=== PATIENT | male | born 1970 | race Two or more races ===

== ENCOUNTER 2020-01-08 11:35 | Inpatient (IN) | payer MEDICAID, OTHER ==
[~2020-01-08] VITALS: Ht 167.6 cm; Wt 81.2 kg
[2020-01-08] MEDS ORDERED: ASPIRIN 81MG TABLET PO ONE (14:15)
[2020-01-08 14:30] LABS: BASOPHILS % 0.4 % (0.0-2.0); EOSINOPHILS % 0.2 % (0.0-5.0); HEMATOCRIT. 47.7 % (42.0-52.0); HEMOGLOBIN. 16.6 g/dL (14.0-18.0); LYMPHOCYTES % 12.9 % (20.0-50.0); MEAN CORPUSCULAR HEMOGLOBIN 32.7 pg (28.0-32.0); MEAN CORPUSCULAR VOLUME 93.8 fL (80.0-94.0); MONOCYTES % 12.3 % (2.0-8.0); NEUTROPHILS % 74.2 % (40.0-76.0); PLATELET 195 x1000/uL (130-400); RED BLOOD CELL COUNT 5.08 mill/uL (4.7-6.1); RED CELL DISTRIBUTION WIDTH 13.3 % (11.6-14.6)
[2020-01-08 14:47] LABS: CHLORIDE 90 mEq/L (98-107)
[2020-01-08 14:51] LABS: ETHANOL BLOOD < 10 mg/dL
[2020-01-08] MEDS ORDERED: IPRATROPIUM BROMIDE (0.02%) 0.5MG/2.5ML NEB HHN STA (15:05)
[2020-01-08] MEDS ORDERED: ALBUTEROL (0.083%) 2.5MG/3ML NEB HHN STA (15:05)
[2020-01-08] MEDS ORDERED: KETOROLAC 30MG/ML VIAL IV ONE (15:15)
[2020-01-08 16:02] LABS: *AMPHETAMINES SCREEN URINE NEGATIVE (NEGATIVE); *BARBITURATES SCREEN URINE NEGATIVE (NEGATIVE); *BENZODIAZEPINES SCREEN URINE NEGATIVE (NEGATIVE); *COCAINE SCREEN URINE NEGATIVE (NEGATIVE)
[2020-01-08 16:03] LABS: CANNABINOID URINE SCREEN NEGATIVE (NEGATIVE); OPIATES URINE SCREEN NEGATIVE (NEGATIVE); PHENCYCLIDINE URINE SCREEN NEGATIVE (NEGATIVE)
[2020-01-08 16:04] LABS: METHADONE URINE SCREEN NEGATIVE (NEGATIVE)
[2020-01-08] MEDS ORDERED: SODIUM CHLORIDE 0.9% 1,000 ML IV ONE (16:30)
[2020-01-09 08:00] VITALS: BP 145/82
[2020-01-09] MEDS ORDERED: SODIUM CHLORIDE 0.9% 1,000 ML IV SCH (08:15)
[2020-01-09] MEDS ORDERED: ONDANSETRON HCL 4MG/2ML INJ IV PRN (08:15)
[2020-01-09] MEDS ORDERED: ASPIRIN 81MG TABLET PO SCH (09:00)
[2020-01-09] MEDS ORDERED: IPRATROPIUM/ALBUTEROL 0.5-3(2.5)MG/3ML NEB HHN PRN (09:45)
[2020-01-09] MEDS ORDERED: ENOXAPARIN 40MG/0.4ML SYR SUBCUT SCH (10:00)
[2020-01-09] MEDS: ACETAMINOPHEN 325MG TABLET PO PRN ×2 (10:12→16:03)
[2020-01-09 11:09] VITALS: BP 145/82
[2020-01-09 12:00] VITALS: BP 144/83
[2020-01-09 12:35] LABS: BASOPHILS % 0.6 % (0.0-2.0); EOSINOPHILS % 1.2 % (0.0-5.0); HEMATOCRIT. 45.8 % (42.0-52.0); HEMOGLOBIN. 15.8 g/dL (14.0-18.0); LYMPHOCYTES % 18.9 % (20.0-50.0); MEAN CORPUSCULAR HEMOGLOBIN 32.9 pg (28.0-32.0); MEAN CORPUSCULAR VOLUME 95.3 fL (80.0-94.0); MEAN PLATELET VOLUME 8.1 fl (7.4-10.4); MONOCYTES % 9.8 % (2.0-8.0); NEUTROPHILS % 69.5 % (40.0-76.0); PLATELET 173 x1000/uL (130-400); RED CELL DISTRIBUTION WIDTH 13.7 % (11.6-14.6)
[2020-01-09 12:41] LABS: CHLORIDE 99 mEq/L (98-107)
[2020-01-09] MEDS: IPRATROPIUM/ALBUTEROL 0.5-3(2.5)MG/3ML NEB HHN SCH ×2 (12:47→16:18)
[2020-01-09 12:50] LABS: LDL CHOLESTEROL 60 mg/dL (5-100)
[2020-01-09 12:52] LABS: HDL CHOLESTEROL 68 mg/dL (40-59)
[2020-01-09 15:00] VITALS: BP 144/83
[2020-01-09 15:12] LABS: CLARITY URINE CLOUDY (CLEAR); COLOR URINE YELLOW (YELLOW); KETONES URINE TRACE (NEGATIVE); LEUKOCYTE ESTERASE URINE NEGATIVE (NEGATIVE); NITRITE URINE NEGATIVE (NEGATIVE); OCCULT BLOOD URINE NEGATIVE (NEGATIVE); PROTEIN URINE TRACE (NEGATIVE); SPECIFIC GRAVITY URINE 1.015 (1.005-1.030)
== END 2020-01-09 17:20 | disposition home or self-care (01) | DRG 347 ==
LOC: ER 13:04 → 5WST 17:53 → ENRESERV 01-09 07:37 → 5WST 01-09 09:41
PROVIDERS: ADMIT Internal Medicine; ATTEND Internal Medicine
DX: M54.9 Dorsalgia, unspecified (principal); E87.1 Hypo-osmolality and hyponatremia; E87.8 Other disorders of electrolyte and fluid balance, not elsewhere classified; E78.5 Hyperlipidemia, unspecified; R07.89 Other chest pain; F17.210 Nicotine dependence, cigarettes, uncomplicated; I10 Essential (primary) hypertension; Z71.6 Tobacco abuse counseling
CPT/HCPCS: 36415; 71045; 80048; 80053; 80061; 80305; 80320; 81003; 83880; 84443; 84484; 85025; 87804; 93005; 93306; 94640; 99285; J1650; J1885; J7030; G0480

== ENCOUNTER 2022-06-04 16:06 | Emergency (ER) | payer MEDICAID ==
[~2022-06-04] VITALS: Ht 167.6 cm; Wt 71.0 kg
[~2022-06-04 16:06] MED LIST: ASPI-1497 PO; LOSA100T32 PO; METO100T16 MT; PRO1 MT
[2022-06-04] MEDS ORDERED: OXYMETAZOLINE HCL NASAL SPRAY 15ML LEFTNSTRL SCH (16:45)
[2022-06-04 18:23] VITALS: BP 127/76
== END 2022-06-04 18:24 | disposition home or self-care (01) ==
LOC: ER 16:06
DX: R04.0 Epistaxis (principal); I10 Essential (primary) hypertension; Z79.82 Long term (current) use of aspirin
CPT/HCPCS: 30901; 99283; 99284

== ENCOUNTER 2024-05-05 14:45 | Emergency (ER) | payer MEDICAID ==
[~2024-05-05] VITALS: Ht 175.3 cm; Wt 121.0 kg
[~2024-05-05 14:45] MED LIST changes: -LOSA100T32 PO; +LOSA100T33 PO
[2024-05-05 15:06] VITALS: O2SAT 96
[2024-05-05 15:39] VITALS: TEMP 97.9
[2024-05-05 15:44] LABS: BASOPHILS % 0.5 % (0.0-2.0); EOSINOPHILS % 1.1 % (0.0-5.0); HEMATOCRIT. 42.8 % (42.0-52.0); HEMOGLOBIN. 14.7 g/dL (14.0-18.0); LYMPHOCYTES % 22.2 % (20.0-50.0); MEAN CORPUSCULAR HEMOGLOBIN 32.9 pg (28.0-32.0); MEAN CORPUSCULAR HGB CONC 34.4 g/dL (31.0-37.0); MEAN CORPUSCULAR VOLUME 95.7 fL (80.0-94.0); MEAN PLATELET VOLUME 8.2 fl (7.4-10.4); MONOCYTES % 13.2 % (2.0-8.0); PLATELET 154 x1000/uL (130-400); RED BLOOD CELL COUNT 4.47 mill/uL (4.7-6.1); RED CELL DISTRIBUTION WIDTH 13.3 % (11.6-14.6); WHITE BLOOD COUNT 5.1 x1000/uL (4.5-11.0)
[2024-05-05 15:48] LABS: CHLORIDE 100 mEq/L (98-107); POTASSIUM 3.7 mEq/L (3.5-5.1); SODIUM 133 mEq/L (136-145)
[2024-05-05 15:49] LABS: CALCIUM 9.8 mg/dL (8.7-10.4); CARBON DIOXIDE 26 mEq/L (21-32)
[2024-05-05 15:54] LABS: CREATININE 0.7 mg/dL (0.6-1.3); GLUCOSE 108 mg/dL (70-105); UREA NITROGEN BLOOD 5 mg/dL (9-23)
[2024-05-05 15:55] LABS: TROPONIN I HIGH SENSITIVITY 6 ng/L (3.0-53)
[2024-05-05 16:04] LABS: INR 0.9; PARTIAL THROMBOPLASTIN TIME 32.4 sec (23.4-31.0); PROTHROMBIN TIME 10.4 sec (9.6-11.0)
[2024-05-05 16:28] LABS: CLARITY URINE CLEAR (CLEAR); COLOR URINE YELLOW (YELLOW); GLUCOSE URINE NEGATIVE (NEGATIVE); KETONES URINE NEGATIVE (NEGATIVE); LEUKOCYTE ESTERASE URINE NEGATIVE (NEGATIVE); NITRITE URINE NEGATIVE (NEGATIVE); OCCULT BLOOD URINE NEGATIVE (NEGATIVE); PH URINE 6.5 (4.5-8.0); PROTEIN URINE NEGATIVE (NEGATIVE); SPECIFIC GRAVITY URINE 1.006 (1.005-1.030)
[2024-05-05] MEDS: PANTOPRAZOLE SODIUM 40 MG/VIAL IV ONE (16:37)
[2024-05-05] MEDS ORDERED: FAMO-135 MT (17:17)
[2024-05-05] MEDS ORDERED: HYDR30CR80 TP (17:17)
[2024-05-05] MEDS: AMLODIPINE 10MG TABLET PO ONE (18:54)
[2024-05-05] MEDS: LOSARTAN 100 MG TABLET PO ONE (18:55)
[2024-05-05] MEDS: METOPROLOL SUCCINATE 50MG ER TABLET PO STA (18:55)
[2024-05-05 19:06] VITALS: BP 169/91; PULSE 85; RESP 14
== END 2024-05-05 19:07 | disposition home or self-care (01) ==
LOC: ER 14:45
DX: R10.13 Epigastric pain (principal); K64.9 Unspecified hemorrhoids; I10 Essential (primary) hypertension; Z79.899 Other long term (current) drug therapy
CPT/HCPCS: 80048; 81003; 85025; 85610; 85730; 86850; 86900; 86901; 84484; 36415; 71045; 93005; 96374; 99285; C9113; Z7610

== ENCOUNTER 2024-06-28 15:13 | Emergency (ER) | payer SELFPAY ==
[~2024-06-28] VITALS: Ht 175.3 cm; Wt 118.0 kg
[~2024-06-28 15:13] MED LIST changes: +FAMO-135 MT; +HYDR30CR80 TP
[2024-06-28 15:38] VITALS: O2SAT 97
[2024-06-28 16:19] LABS: EOSINOPHILS % 0.1 % (0.0-5.0); HEMATOCRIT. 43.2 % (42.0-52.0); HEMOGLOBIN. 15.2 g/dL (14.0-18.0); LYMPHOCYTES % 28.3 % (20.0-50.0); MEAN CORPUSCULAR HGB CONC 35.2 g/dL (31.0-37.0); MEAN CORPUSCULAR VOLUME 93.8 fL (80.0-94.0); MEAN PLATELET VOLUME 7.8 fl (7.4-10.4); NEUTROPHILS % 59.6 % (40.0-76.0); PLATELET 173 x1000/uL (130-400); RED CELL DISTRIBUTION WIDTH 13.4 % (11.6-14.6); WHITE BLOOD COUNT 4.3 x1000/uL (4.5-11.0)
[2024-06-28 16:27] LABS: CHLORIDE 95 mEq/L (98-107); POTASSIUM 3.2 mEq/L (3.5-5.1); SODIUM 129 mEq/L (136-145)
[2024-06-28 16:28] LABS: CARBON DIOXIDE 24 mEq/L (21-32)
[2024-06-28 16:29] LABS: CALCIUM 8.5 mg/dL (8.7-10.4)
[2024-06-28 16:33] LABS: CREATININE 0.8 mg/dL (0.6-1.3)
[2024-06-28 16:34] LABS: GLUCOSE 106 mg/dL (70-105); UREA NITROGEN BLOOD 9 mg/dL (9-23)
[2024-06-28 16:35] LABS: ALANINE AMINOTRANSFERASE 115 IU/L (10-49); ALBUMIN 4.2 g/dL (3.2-4.8); ASPARTATE AMINOTRANSFERASE 180 IU/L (<34)
[2024-06-28 16:36] LABS: BILIRUBIN DIRECT 0.3 mg/dL (<=3.0); BILIRUBIN TOTAL 1.2 mg/dL (0.1-1.0); PROTEIN TOTAL 7.1 g/dL (6.0-8.3)
[2024-06-28 17:46] LABS: ETHANOL BLOOD 24 mg/dL (<10)
[2024-06-28] MEDS: KETOROLAC 30MG/ML VIAL IM ONE (18:00)
[2024-06-28] MEDS ORDERED: IBUP-2029 MT (20:05)
[2024-06-28] MEDS ORDERED: LOPE2CAP MT (20:05)
[2024-06-28 21:00] VITALS: BP 129/75; PULSE 98; RESP 20; TEMP 98.2
== END 2024-06-28 21:00 | disposition home or self-care (01) ==
LOC: ER 15:21
DX: R16.0 Hepatomegaly, not elsewhere classified (principal); N28.1 Cyst of kidney, acquired; K52.9 Noninfective gastroenteritis and colitis, unspecified; I10 Essential (primary) hypertension
CPT/HCPCS: 36415; 74176; 80048; 80076; 80320; 85025; 93005; 99284; G0480

== ENCOUNTER 2025-09-23 11:43 | Emergency (ER) | payer SELFPAY ==
[~2025-09-23] VITALS: Ht 167.6 cm; Wt 78.0 kg
[~2025-09-23 11:43] MED LIST changes: +IBUP-1455 MT; +LOPE2CAP MT; +NIFE10CA59 MT; -PRO1 MT
[2025-09-23 12:49] VITALS: O2SAT 100
[2025-09-23 13:25] LABS: CLARITY URINE CLEAR (CLEAR); COLOR URINE YELLOW (YELLOW); GLUCOSE URINE NEGATIVE (NEGATIVE); KETONES URINE NEGATIVE (NEGATIVE); LEUKOCYTE ESTERASE URINE NEGATIVE (NEGATIVE); NITRITE URINE NEGATIVE (NEGATIVE); OCCULT BLOOD URINE 1+ (NEGATIVE); PH URINE 6.5 (4.5-8.0); PROTEIN URINE NEGATIVE (NEGATIVE); SPECIFIC GRAVITY URINE 1.004 (1.005-1.030); UROBILINOGEN URINE 1.0 E.U./dL (0.2-1.0)
[2025-09-23 13:58] LABS: BACTERIA URINE NONE SEEN; RBC URINE 0-2 /hpf (0-2); SQUAMOUS EPITHELIAL CELL URINE RARE /lpf (RARE/1+); WBC URINE 0-2 /hpf (0-2); YEAST URINE NONE SEEN
[2025-09-23] MEDS: ONDANSETRON HCL 4MG/2ML INJ IV ONE (15:12)
[2025-09-23] MEDS: MORPHINE SULFATE 4 MG/ML INJ (FOR IV/IM USE) IV ONE (15:12)
[2025-09-23] MEDS: IBUPROFEN 800MG TABLET PO ONE (16:00)
[2025-09-23 16:12] LABS: BASOPHILS % 0.3 % (0.0-2.0); EOSINOPHILS % 0.3 % (0.0-5.0); HEMATOCRIT. 43.6 % (42.0-52.0); HEMOGLOBIN. 14.8 g/dL (14.0-18.0); LYMPHOCYTES % 15.9 % (20.0-50.0); MEAN PLATELET VOLUME 8.0 fl (7.4-10.4); MONOCYTES % 10.1 % (2.0-8.0); NEUTROPHILS % 73.4 % (40.0-76.0); PLATELET 107 x1000/uL (130-400); RED BLOOD CELL COUNT 4.28 mill/uL (4.7-6.1); RED CELL DISTRIBUTION WIDTH 14.3 % (11.6-14.6)
[2025-09-23 16:24] LABS: UREA NITROGEN BLOOD 13 mg/dL (9-23)
[2025-09-23 16:25] LABS: TROPONIN I HIGH SENSITIVITY 7 ng/L (3.0-53)
[2025-09-23 16:26] LABS: ASPARTATE AMINOTRANSFERASE 120 IU/L (<34); BILIRUBIN DIRECT 0.6 mg/dL (<=3.0); BILIRUBIN TOTAL 1.4 mg/dL (0.1-1.0); PROTEIN TOTAL 6.7 g/dL (6.0-8.3)
[2025-09-23 16:29] LABS: CREATININE 1.8 mg/dL (0.6-1.3)
[2025-09-23] MEDS ORDERED: TOPUD MT (17:23)
[2025-09-23] MEDS ORDERED: TRAM50TA3 MT (17:23)
[2025-09-23] MEDS ORDERED: PANT40SU MT (17:23)
[2025-09-23 17:56] VITALS: BP 148/82; PULSE 85; RESP 18; TEMP 36.6; O2SAT 100
== END 2025-09-23 17:57 | disposition home or self-care (01) ==
LOC: ER 11:43 → CMPBEDREQ 09-24 07:43
DX: K29.00 Acute gastritis without bleeding (principal); M47.816 Spondylosis without myelopathy or radiculopathy, lumbar region; R94.5 Abnormal results of liver function studies; I10 Essential (primary) hypertension; Z87.19 Personal history of other diseases of the digestive system; Z79.899 Other long term (current) drug therapy
CPT/HCPCS: 99285; 74176; 96374; 96375; 80076; 80048; 81003; 83690; 85025; 84484; 36415; 93005; J2405; J2270